=== PATIENT | female | born 1970 | race Caucasian/White ===

== ENCOUNTER 2019-10-06 12:35 | Outpatient (CLI) | payer SELFPAY | END 2019-10-06 12:36 | disposition home or self-care (01) | LOC: SPT 12:35 | PROVIDERS: Visit Provider Podiatrist Foot & Ankle Surgery | DX: Z46.89 Encounter for fitting and adjustment of other specified devices (principal); S82.841D Displaced bimalleolar fracture of right lower leg, subsequent encounter for closed fracture with routine healing; X58.XXXD Exposure to other specified factors, subsequent encounter | CPT/HCPCS: 97760; L4361 ==

== ENCOUNTER → 2019-10-20 11:07 | Outpatient (BNVA) | payer SELFPAY | PROVIDERS: Visit Provider Podiatrist Foot & Ankle Surgery | DX: S82.831A Other fracture of upper and lower end of right fibula, initial encounter for closed fracture (principal); S82.51XA Displaced fracture of medial malleolus of right tibia, initial encounter for closed fracture; X58.XXXA Exposure to other specified factors, initial encounter | CPT/HCPCS: 73610 ==

== ENCOUNTER 2019-11-03 11:56 | Outpatient (CLI) | payer SELFPAY ==
--- NOTE | 2019-11-03 12:03 | XR_ITS ---
WS: [id number] Right ankle, 3 views, 11/03/2019 Clinical Data: bimalleolar ankle fracture Comparison: Right ankle, 10/20/2019. Findings: The oblique fracture of the distal right fibula remains the same. There may be a small avulsion fract ure from the tip of the medial malleolus. XR/XR ankle RT min 3V* [id number] Impression: No change in position of fracture of distal right fibula.
== END 2019-11-03 11:57 | disposition home or self-care (01) ==
LOC: RAD 11:58
PROVIDERS: Visit Provider Podiatrist Foot & Ankle Surgery
DX: S82.841A Displaced bimalleolar fracture of right lower leg, initial encounter for closed fracture (principal); X58.XXXA Exposure to other specified factors, initial encounter
CPT/HCPCS: 73610